=== PATIENT | female | born 1955 | race Caucasian/White ===

== ENCOUNTER 2017-12-25 09:33 | Emergency (ER) | payer BC ==
[2017-12-25 09:45] VITALS: BP 142/74
--- NOTE | 2017-12-25 11:13 | UC ---
Upper Extremity HPI - HPI Summary HPI Summary: IN-ROOM NOTE: This patient is a 62 year old F presenting to [facility] [place] with a chief complaint of an aching and burning left wrist pain since yesterday. The patient rates the pain 8/10 in severity. Symptoms aggravated by extension. Patient denies cough, N/V/D, and fever. She has never had anything like this before. Patient could not move her wrist this morning, but she iced it which resulted in her regaining some ROM. Patient is on Vitamin D and has osteopenia. Her PCP is Sandee Schmidt MD. NOTE: Vital signs stable, BP 142/74. Not on antihypertensive medication. 8/10 left wrist discomfort. Visit history shows vitamin D deficiency, osteoporosis. NURSES NOTE: left wrist pain started yesterday denies trauma - History of Current Complaint Chief Complaint: UCUpperExtremity Stated Complaint: WRIST INJURY Time Seen by Provider: 12/25/17 10:24 Hx Obtained From: Patient Onset/Duration: Sudden Onset, Lasting Days - Since yesterday, Still Present Severity Initially: Severe Severity Currently: Severe Pain Intensity: 8 Pain Scale Used: 0-10 Numeric Location Of Pain: Is Discrete @ - Left wrist Associated Signs And Symptoms: Negative: Fever, Other - Denies N/V/D ad cough Related History: Dominant Hand Right - Allergies/Home Medications Allergies/Adverse Reactions: Allergies Allergy/AdvReac Type Severity Reaction Status Date / Time Penicillins Allergy hive Verified 12/25/17 09:45 PMH/Surg Hx/FS Hx/Imm Hx Previously Healthy: No - Osteoporosis Psychological History: Post Traumatic Stress Disorder - Surgical History Surgical History: Yes Surgery Procedure, Year, and Place: 2 C-SECTIONS, BREAST REDUCTION - Family History Known Family History: Positive: Other - CVA Negative: Cardiac Disease, Hypertension, Diabetes - Social History Occupation: Employed Full-time Lives: With Family Alcohol Use: None Substance Use Type: None Smoking Status (MU): Never Smoked Tobacco Review of Systems Constitutional: Fever - Denies Respiratory: Cough - Denies Gastrointestinal: Vomiting - Denies, Diarrhea - Denies, Nausea - Denies Musculoskeletal: Other: - aching and burning left wrist pain All Other Systems Reviewed And Are Negative: Yes - Comments Additional Review of Systems Comments: POSITIVE: ACHING AND BURNING LEFT WRIST PAIN NEGATIVE: N/V/D, COUGH, AND FEVER Physical Exam - Summary Physical Exam Summary: Appearance: The patient is well-appearing, is in no pain distress, and is well- nourished. Eyes: Conjunctiva are clear. ENT: The hearing is grossly normal, the pharynx is normal, and the TMs are normal. There is no muffled or hoarse voice. Neck: The neck is supple and there is no lymphadenopathy. Respiratory: The chest is nontender. The lungs are clear, there are normal breath sounds, and there is no respiratory distress. Cardiovascular: Heart is regular rate and rhythm. There is no murmur. Abdomen: The abdomen is soft and nontender. There is no organomegaly. Bowel sounds: present Musculoskeletal: Strength is intact. LEFT WRIST EXAMINATION: SHOWS MILD SWELLING OVER THE DORSUM, JUST PROXIMAL TO THE WRIST CREASE, IN COMPARISON TO THE RIGHT. FLEXEo AND [address] DEPARTMENT TENDONS ARE INTACT. NORMAL CAPILLARY REFILL. NEGATIVE SNUFF BOX TENDERNESS. MILDLY POSITIVE FINKETEIN TEST. MAXIMUM PAIN IS WITH HYPEREXTENSION OF THE L WRIST. Neurological: The patient is alert. Motor and sensory examination grossly intact. Psychological: The patient displays age appropriate behavior Skin: Negative for rashes. Triage Information Reviewed: Yes Vital Signs: Initial Vital Signs Temp 98 F 12/25/17 09:42 Pulse 85 12/25/17 09:42 Resp 16 12/25/17 09:42 BP 142/74 12/25/17 09:42 Pulse Ox 100 12/25/17 09:42 Vital Signs Reviewed: Yes Diagnostics - Radiology Left wrist X-Ray Radiology Interpretation Completed By: Radiologist - #. Negative for fracture or articular alignment at the LEFT wrist or hand. #. 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 ED Physician has reviewed this imaging report. Hand XRay Radiology Interpretation Completed By: Radiologist - 11:16. #. Negative for fracture or articular alignment at the LEFT wrist or hand. #. 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 ED physciain has reviewed this imaging report. 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 There is swelling in this area. She has osteopenia and is on vitamin D. Her xrays are negative for fracture. She has a mildly positive Roger test. My dx is tendonitis of the dorsum of the left wrist. I explained this to the patient and her . She will immobilize the area with a splint and have physical therapy if not improving in 2 weeks. She will also restrict her activity and take an anti- inflammatory. - Differential Dx/Diagnosis Differential Diagnosis/HQI/PQRI: Fracture (Closed), Sprain, Other - Tendonitis vs. osteoarthritis Provider Diagnoses: tendonitis of the dorsum of the left wrist; mild osteoarthritis of left wrist Discharge - Sign-Out/Discharge Documenting (check all that apply): Patient Departure All imaging exams completed and their final reports reviewed: Yes - Discharge Plan Condition: Stable Disposition: HOME Patient Education Materials: Tendinitis (ED) Referrals: Sandee Esquivel MD [Primary Care Provider] - Additional Instructions: WE DISCUSSED: You have a tendinitis from overuse at your left wrist. X-ray did not show any broken bones. Use warm moist heat in the morning to loosen up the wrist and the tendons. After use or for acute pain use ice to the area. Use the splint when awake. Use the splint if you are exercising the left wrist until you are pain-free. You can take ibuprofen for discomfort. Elevate the left wrist as much as she can to the level of your heart when you're sitting or standing. If your condition is not improving in 2-3 weeks, consider getting the wrist rechecked and starting physical therapy. Recheck at any time for increased pain or disability. - Attestation Statements Document Initiated by Scribe: Yes Documenting Scribe: Kevin Calero Provider For Whom Scribe is Documenting (Include Credential): Lars Kellogg MD Scribe Attestation: Kevin Thorne, scribed for Lars Kellogg MD on 12/25/17 at 1131.
--- NOTE | 2017-12-25 11:19 | RAD ---
INDICATION: LEFT hand and wrist pain and swelling following overuse repetitive injury. COMPARISON: No relevant prior exams available on the [facility] for comparison. TECHNIQUE: AP, lateral, and oblique views LEFT hand. AP, lateral, and oblique views LEFT wrist. REPORT: Negative for fracture or malalignment at the wrist or hand. Mild osteophytosis at the first and second metacarpal phalangeal joints without significant joint space narrowing. Unremarkable soft tissue contours. IMPRESSION: #. Negative for fracture or articular alignment at the LEFT wrist or hand. #. 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
--- NOTE | 2017-12-25 11:19 | RAD ---
INDICATION: LEFT hand and wrist pain and swelling following overuse repetitive injury. COMPARISON: No relevant prior exams available on the [facility] for comparison. TECHNIQUE: AP, lateral, and oblique views LEFT hand. AP, lateral, and oblique views LEFT wrist. REPORT: Negative for fracture or malalignment at the wrist or hand. Mild osteophytosis at the first and second metacarpal phalangeal joints without significant joint space narrowing. Unremarkable soft tissue contours. IMPRESSION: #. Negative for fracture or articular alignment at the LEFT wrist or hand. #. 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
== END 2017-12-25 11:32 | disposition home or self-care (01) ==
LOC: UCEAST 09:33
DX: M77.9 Enthesopathy, unspecified (principal); M19.032 Primary osteoarthritis, left wrist; M85.80 Other specified disorders of bone density and structure, unspecified site; Z88.0 Allergy status to penicillin
CPT/HCPCS: 99212; G0463